=== PATIENT | female | born 1965 | race Caucasian/White ===

== ENCOUNTER 2019-09-21 02:44 | Emergency (ER) | payer BC ==
[2019-09-21 02:57] VITALS: BP 142/104; PULSE 93
[2019-09-21] MEDS ORDERED: Famotidine 20 MG Tab PO STA (03:19)
--- NOTE | 2019-09-21 03:26 | EDM.PDOC ---
ED HPI GENERAL MEDICAL PROBLEM - General Chief Complaint: Skin Complaint Stated Complaint: HIVES POSSIBLY FROM NEW MEDICATION Time Seen by Provider: 09/21/19 02:56 Source of Information: Reports: Patient, Family () History Limitations: Reports: No Limitations - History of Present Illness INITIAL COMMENTS - FREE TEXT/NARRATIVE: Mrs. gutierrez is a very pleasant 54-year-old woman with a past medical history significant for allergic rhinitis and GERD, for which she takes famotidine on an as-needed basis, who now presents the ED stating that she was started on Augmentin yesterday afternoon, 09/20/2019, for a dental abscess, prescribed by the walk-in clinic. She has taken a total of 2 doses so far. She states that she woke around 01:00 this morning with generalized pruritus. When she looked in the mirror, she found what appeared to be some urticaria in a few intertriginous spaces, including on her abdomen and within her antecubital fossas. No angioedema, dyspnea, or wheezing, however, she does report having significant GERD-like symptoms that developed after she took her first dose of the Augmentin yesterday afternoon. No prior episodes of pruritus or urticaria. The patient did not take any [id number] or home remedies prior to coming to the ED. Here in the ED, the patient's initial BP is found to be slightly elevated at 142/104, otherwise, she is hemodynamically stable, afebrile, saturating 98% on room air. Other than the dental infection and tonight's pruritus/urticaria, the patient denies recent fever, chills, sore throat, ear pain, nasal or sinus congestion, cough, dyspnea, chest pain, palpitations, nausea, vomiting, constipation, diarrhea, urinary symptoms, recent weight gain or weight loss, recent bloody bowel movements or black bowel movements, recent joint aches, headaches, or rashes. The patient's PCP is Carla Hill NP. - Related Data Allergies Allergy/AdvReac Type Severity Reaction Status Date / Time levofloxacin [From Levaquin] Allergy Airway Verified 09/21/19 02:56 Tightness Home Meds: Home Meds Metoprolol. 25 mg PO DAILY 10/24/13 [History] Zantac. 150 mg PO BID 10/24/13 [History] Albuterol [Proair HFA] 2 puff INH ASDIRECTED 03/22/16 [History] Fluticasone Propionate [Flonase] 1 sprays NASBOTH BID #1 bottle 03/22/16 [Rx] Mometasone/Formoterol [Dulera 200 MCG/5 MCG] 2 puff INH DAILY 03/22/16 [History] predniSONE [Prednisone] 40 mg PO DAILY #10 tablet 03/22/16 [Rx] EPINEPHrine [Auvi-Q] 1 injection IM ASDIRECTED PRN #1 kit 09/21/19 [Rx] Past Medical History HEENT History: Reports: Allergic Rhinitis Cardiovascular History: Reports: Hypertension Respiratory History: Reports: COPD (suspected, not tested) Gastrointestinal History: Reports: GERD - Past Surgical History HEENT Surgical History: Reports: Oral Surgery (wisdom teeth extraction) GI Surgical History: Reports: Appendectomy (1986), Cholecystectomy (1986) Female Surgical History: Reports: Section (x 1), Endometrial Ablation, Tubal Ligation Social & Family History - Tobacco Use Smoking Status *Q: Never Smoker - Alcohol Use Alcohol Use History: Yes Alcohol Use Frequency: Rarely - Recreational Drug Use Recreational Drug Use: No - Living Situation & Occupation Living situation: Reports: , with Spouse Occupation: Employed ([employer]) ED ROS GENERAL - Review of Systems Review Of Systems: Comprehensive ROS is negative, except as noted in HPI. ED EXAM, SKIN/RASH Exam: See Below Exam Limited By: No Limitations General Appearance: Alert, WD/WN, No Apparent Distress Eye Exam: Bilateral Eye: EOMI, Normal Inspection Ears: Normal External Exam, Normal Canal, Hearing Grossly Normal, Normal TMs Nose: Normal Inspection, Normal Mucosa, No Blood Throat/Mouth: Normal Inspection, Normal Lips, Normal Teeth, Normal Gums, Normal Oropharynx (No uvular edema), Normal Voice, No Airway Compromise Head: Atraumatic, Normocephalic Neck: Normal Inspection, Supple, Non-Tender, Full Range of Motion. No: Lymphad enopathy (L), Lymphadenopathy (R) Respiratory/Chest: No Respiratory Distress, Lungs Clear, Normal Breath Sounds, No Accessory Muscle Use, Chest Non-Tender. No: Decreased Breath Sounds, Crackles, Rhonchi, Wheezing, Stridor, Prolonged Expiration Cardiovascular: Normal Peripheral Pulses, Regular Rate, Rhythm, No Edema, No Gallop, No JVD, No Murmur, No Rub Peripheral Pulses: 3+: Radial (L), Radial (R) GI/Abdominal: Normal Bowel Sounds, Soft, Non-Tender, No Organomegaly, No Distention, No Abnormal Bruit, No Mass (Female) Exam: Deferred Rectal (Female) Exam: Deferred Back Exam: Normal Inspection, Full Range of Motion, NT Extremities: Normal Inspection, Normal Range of Motion, No Pedal Edema, Normal Capillary Refill Neurological: Alert, Oriented, Normal Cognition, No Motor/Sensory Deficits Psychiatric: Normal Affect Skin: Warm, Dry, Intact, Normal Color, No Rash Course - Vital Signs Last Recorded V/S: Last Vital Signs Temp 36.7 C 09/21/19 02:53 Pulse 93 09/21/19 02:53 Resp 19 09/21/19 02:53 BP 142/104 H 09/21/19 02:53 Pulse Ox 98 09/21/19 02:53 - Orders/Labs/Meds Meds: Medications Discontinued Medications Generic Name Dose Route Start Last Admin Trade Name Carlos Manuelq PRN Reason Stop Dose Admin Famotidine 40 mg 09/21/19 03:19 09/21/19 03:26 Pepcid PO 09/21/19 03:20 40 mg ONETIME STA Administration - Re-Assessments/Exams Free Text/Narrative Re-Assessment/Exam: 09/21/19 03:20 As above, the patient has minimal urticaria in some intertriginous areas on her abdomen and bilateral antecubital fossas, with no significant pruritus at this time. There is no angioedema, no dyspnea, and no wheezing on auscultation. She is, however, complaining of GERD-like symptoms. She appears to be suffering from a mild allergic reaction, likely to Augmentin. For tonight's purposes, the patient will be treated with 40 mg of oral famotidine. Current guidelines recommend a nonsedating antihistamine, such as Zyrtec or Xyzal, however, unfortunately, we do not carry either. We carry Claritin, but it is quite weak. I offered to treat the patient with Benadryl, however, she stated that she has Benadryl at home. We will discharge her with a prescription for an epinephrine pen kit, and a referral to an [facility]. Departure - Departure Time of Disposition: : Disposition: Home, Self-Care 01 Condition: Good Clinical Impression: Allergic reaction - Discharge Information *PRESCRIPTION DRUG MONITORING PROGRAM REVIEWED*: Not Applicable *COPY OF PRESCRIPTION DRUG MONITORING REPORT IN PATIENT [place]: Not Applicable Prescriptions: EPINEPHrine [Auvi-Q] 1 injection IM ASDIRECTED PRN #1 kit PRN Reason: Shortness Of Breath Instructions: Drug Rash Referrals: Carla Hill NP [Primary Care Provider] - Lidia Lea MD [Ordering Only Provider] - Forms: ED Department Discharge Additional Instructions: You were seen in the emergency room after developing generalized itchiness, with a few areas of visible hives, after starting Augmentin. Based on your history and physical examination, you are most likely suffering from a relatively mild allergic reaction. You were treated with 40 mg of famotidine (Pepcid) in the ER, this should help settle your stomach. We recommend that you take 1 tablet of famotidine every 12 hours for the next few days. As discussed, the optimal treatment is to take a nonsedating antihistamine, such as Amaris, Zyrtec, or Xyzal. These are available [id number], but, unfortunately, we do not carry them in the ER. You may take a sedating antihistamine, such as Benadryl, instead. Avoid heat, because heat will tend to make itchy areas worse. For particularly itchy areas, consider applying an ice pack or cool compress. As discussed, while there is a good chance that your allergic reaction is to the Augmentin that you were started on, you cannot be sure unless you are tested. Please follow-up with the [facility] Dr. Lidia Lea the next available appointment. In the meantime, we strongly recommend that you avoid continuing the Augmentin, or any other penicillin derivative. In the event that you suffer a worse allergic reaction, a prescription for an epinephrine kit has been sent to the [facility] located in the [employer]. If you are having an allergic reaction that causes difficulty breathing, you should inject yourself once in your anterolateral thigh, then go to the nearest emergency room immediately. If necessary, you may inject yourself a second time with a second pen after 15 minutes, however, it is imperative that if you inject herself with epinephrine, that you go to the nearest emergency room immediately. If any other problems, please do not hesitate to return to the ER. Sepsis Event Note (ED) - Evaluation Sepsis Screening Result: No Definite Risk - Focused Exam Vital Signs: Vital Signs Temp Pulse Resp BP Pulse Ox 09/21/19 02:53 36.7 C 93 19 142/104 H 98
== END 2019-09-21 03:45 | disposition home or self-care (01) ==
LOC: JD.ED 02:44
DX: L50.0 Allergic urticaria (principal); T36.0X5A Adverse effect of penicillins, initial encounter; T36.1X5A Adverse effect of cephalosporins and other beta-lactam antibiotics, initial encounter; K04.7 Periapical abscess without sinus; I10 Essential (primary) hypertension; Z88.1 Allergy status to other antibiotic agents; Z79.899 Other long term (current) drug therapy
CPT/HCPCS: 99283; A9270; 99282

== ENCOUNTER 2024-08-25 06:10 | Day surgery (SDC) | payer OTHER ==
[2024-08-25] MEDS ORDERED: Lactated Ringers 1,000 ML IV ONE (06:11)
[2024-08-25] MEDS ORDERED: Sodium Chloride 0.9% 50 ML SDV ONE (06:53)
[2024-08-25 07:00] LABS: BASOPHILS PERCENT AUTO 0.7 % (0.0-1.0); EOSINOPHILS ABSOLUTE AUTO 0.2 K/mm3 (0.0-0.4); HEMATOCRIT 47.6 % (37.0-47.0); HEMOGLOBIN 16.3 gm/dl (12.0-16.0); IMMATURE GRAN ABSOLUTE AUTO 0.01 K/mm3 (0.00-0.05); IMMATURE GRAN PERCENT AUTO 0.2 % (0.0-0.4); LYMPHOCYTES ABSOLUTE AUTO 1.8 K/mm3 (1.0-4.8); MEAN CORPUSCULAR HEMOGLOBIN 29.3 pg (28.0-32.0); MEAN CORPUSCULAR HGB CONC 34.2 g/dl (32.0-36.0); MEAN CORPUSCULAR VOLUME 85.6 fl (83.0-99.0); MEAN PLATELET VOLUME 9.3 fl (9.4-12.3); MONOCYTES ABSOLUTE AUTO 0.5 K/mm3 (0.0-0.8); MONOCYTES PERCENT AUTO 8.6 % (0.0-8.0); NEUTROPHILS ABSOLUTE AUTO 3.5 K/mm3 (1.8-7.7); NEUTROPHILS PERCENT AUTO 57.5 % (41.0-71.0); PLATELET COUNT,PLT 239 K/mm3 (150-400); RED BLOOD CELL COUNT 5.56 M/mm3 (4.10-5.30); WHITE BLOOD CELL COUNT,WBC 6.03 K/mm3 (3.9-11.3)
[2024-08-25] MEDS: Acetaminophen 325 MG Tab PO ONE (07:10)
[2024-08-25] MEDS: Gabapentin 300 MG Cap PO ONE (07:11)
[2024-08-25] MEDS: Phenazopyridine 95 MG Tab PO ONE (07:11)
[2024-08-25] MEDS: Celecoxib 100 MG Cap PO ONE (07:11)
[2024-08-25] MEDS ORDERED: Midazolam 1 MG/ML 2 ML SDV ONE (07:14)
[2024-08-25] MEDS ORDERED: fentaNYL 100 MCG/2 ML SDV ONE (07:14)
[2024-08-25] MEDS ORDERED: Lidocaine 2% 5 ML SDV ONE (07:15)
[2024-08-25] MEDS ORDERED: Dexamethasone 4 MG/ML 5 ML MDV ONE (07:15)
[2024-08-25] MEDS ORDERED: Propofol 200 MG/20 ML SDV ONE (07:15)
[2024-08-25] MEDS ORDERED: Succinylcholine 200 MG/10 ML MDV ONE (07:15)
[2024-08-25] MEDS ORDERED: Ondansetron 4 MG/2 ML SDV ONE (07:15)
[2024-08-25] MEDS ORDERED: Rocuronium 50 MG/5 ML Vial ONE (07:15)
[2024-08-25 07:16] LABS: ANION GAP 14.2 (5-15); BUN/CREATININE RATIO 12.5 (14-18); CREATININE 0.8 mg/dL (0.55-1.02); EST CRCL DRUG DOSING (CG) 53.04 mL/min; POTASSIUM,K 4.2 mEq/L (3.5-5.1)
[2024-08-25] MEDS ORDERED: ceFAZolin 2 GM Vial ONE (07:40)
[2024-08-25] MEDS ORDERED: HYDROmorphone 0.5 MG/0.5 ML Syringe ONE (08:06)
[2024-08-25] MEDS ORDERED: Lidocaine 1% 10 ML MDV ONE ×2 (08:09→08:10)
[2024-08-25] MEDS ORDERED: EPINEPHrine 1 MG/ML SDV ONE (08:09)
[2024-08-25] MEDS ORDERED: Lactated Ringers 1,000 ML ONE (08:27)
[2024-08-25] MEDS ORDERED: Neostigmine Methylsulfate 10 MG/10 ML MDV ONE (08:37)
[2024-08-25] MEDS: EPINEPHrine 1 MG/ML SDV ONE (08:51)
[2024-08-25] MEDS: Lidocaine 1% 10 ML MDV ONE (08:51)
[2024-08-25] MEDS ORDERED: ePHEDrine 50 MG/ML SDV ONE (09:22)
[2024-08-25] MEDS ORDERED: Sugammadex Sodium 200 MG/2 ML VIAL IV ONE (09:22)
[2024-08-25] MEDS ORDERED: HYDROmorphone 0.5 MG/0.5 ML Syringe IVPUSH PRN (09:44)
[2024-08-25] MEDS ORDERED: Ondansetron 4 MG/2 ML SDV IVPUSH PRN (09:44)
[2024-08-25] MEDS: fentaNYL 100 MCG/2 ML SDV IVPUSH PRN (09:54)
[2024-08-25 10:47] VITALS: PULSE 78
[2024-08-25] MEDS: oxyCODONE 5 MG Tab PO PRN (12:00)
[2024-08-25 13:14] VITALS: BP 123/72
== END 2024-08-25 13:00 | disposition home or self-care (01) ==
LOC: JD.SDS 06:10
PROVIDERS: ATTEND Obstetrics & Gynecology
DX: N81.2 Incomplete uterovaginal prolapse (principal); N95.2 Postmenopausal atrophic vaginitis; J44.89 Other specified chronic obstructive pulmonary disease; I10 Essential (primary) hypertension; K21.9 Gastro-esophageal reflux disease without esophagitis; Z79.899 Other long term (current) drug therapy; Z88.0 Allergy status to penicillin; Z88.8 Allergy status to other drugs, medicaments and biological substances
CPT/HCPCS: 36415; 57240; 58260; 80048; 81025; 85025; 86850; 86900; 86901; 87086; A9270; J0171; J0330; J0690; J1100; J1596; J2003; J2250; J2405; J2704; J3010; J7120; 00944; J2710; J3490